=== PATIENT | female | born 1955 | race African-American/Black ===

== ENCOUNTER 2018-05-28 19:54 | Emergency (ER) | payer OTHER ==
[2018-05-28 19:58] VITALS: BP 151/95; PULSE 78; TEMP 98.3; BMI 29.4
--- NOTE | 2018-05-28 20:05 | PDOC ---
History of Present Illness - General Chief Complaint: Injury Stated Complaint: Injury Time Seen by Provider: 05/28/18 20:00 History Source: Patient - History of Present Illness Occurred: reports: this morning Upper Extremity Pain Location: left: wrist Method of Injury: reports: fell Past History - Past Medical History Allergies/Adverse Reactions: Allergies Allergy/AdvReac Type Severity Reaction Status Date / Time Sulfa (Sulfonamide Allergy Verified 05/28/18 19:58 Antibiotics) Home Medications: Ambulatory Orders NK [No Known Home Medication] 05/28/18 COPD: No - Suicide/Smoking/Psychosocial Hx Smoking History: Never smoked Review of Systems - Review of Systems Respiratory: No: Shortness of Breath Cardiac (ROS): No: Chest Pain Musculoskeletal: Yes: Joint Pain, Joint Swelling Neurological: No: Headache *Physical Exam - Vital Signs Last Vital Signs Temp Pulse Resp BP Pulse Ox 98.3 F 78 18 151/95 98 05/28/18 19:56 05/28/18 19:56 05/28/18 19:56 05/28/18 19:56 05/28/18 19:56 - Physical Exam General Appearance: Yes: Appropriately Dressed. No: Apparent Distress HEENT: positive: Normal Voice Neck: positive: Supple Respiratory/Chest: negative: Respiratory Distress Extremity: positive: Swelling (minimal selling and ttp to L wrist, no deformity or snuffbox ttp, L shoulder/elbow/forearm wnl) Integumentary: positive: Dry, Warm Neurologic: positive: Fully Oriented, Alert, Normal Mood/Affect Moderate Sedation - Procedure Monitoring Vital Signs: Procedure Monitoring Vital Signs Temperature 98.3 F 05/28/18 19:56 Pulse Rate 78 05/28/18 19:56 Respiratory Rate 18 05/28/18 19:56 Blood Pressure 151/95 05/28/18 19:56 O2 Sat by Pulse Oximetry (%) 98 05/28/18 19:56 ED Treatment Course - RADIOLOGY Radiology Studies Ordered: Category Date Time Status WRIST W/HAND-LEFT* [RAD] Stat Radiology 05/28/18 20:03 Ordered Medical Decision Making - Medical Decision Making 05/28/18 20:32 62-year-old female here with LUE pain s/p fall down several steps this a.m. Denies hitting head, LOC, headache, dizziness, nausea or vomiting. Not on blood thinners. Denies any other injuries at this time. Ambulatory since fall. No cp or dizziness prior to fall. Patient well-appearing and stable with minimal swelling and tenderness to left wrist. X-rays negative for fracture. DC with [id number] pain control and sling *DC/Admit/Observation/Transfer Diagnosis at time of Disposition: Left wrist sprain Qualifiers: Encounter type: initial encounter Qualified Code(s): S63.502A - Unspecified sprain of left wrist, initial encounter - Discharge Dispostion Disposition: HOME Condition at time of disposition: Good - Referrals - Patient Instructions Printed Discharge Instructions: Wrist Sprain Additional Instructions: Your xray was negative for fracture Pleas take tylenol as needed for pain and follow up with your PMD - Post Discharge Activity
== END 2018-05-28 21:02 | disposition home or self-care (01) ==
LOC: JERFT 19:54
DX: S63.502A Unspecified sprain of left wrist, initial encounter (principal); W10.8XXA Fall (on) (from) other stairs and steps, initial encounter; Y93.89 Activity, other specified; Y92.89 Other specified places as the place of occurrence of the external cause; Y99.8 Other external cause status
CPT/HCPCS: 73070-TC-LT-FY; 73110-TC-LR-FY; 73130-TC-LT-FY; 99281-25